=== PATIENT | male | born 1965 | race Caucasian/White ===

== ENCOUNTER 2017-08-22 18:33 | Emergency (ER) | payer OTHER ==
[~2017-08-22] VITALS: Ht 182.9 cm; Wt 57.2 kg
[~2017-08-22 18:33] MED LIST: ASPI-147 PO; ATOR20TA15 PO; [UNRECOGNIZED DRUG - CODE] PO
[2017-08-22 18:36] VITALS: BP 139/80; PULSE 77; RESP 18; TEMP 98; O2SAT 100
[2017-08-22] MEDS ORDERED: SODIUM CHLOR 0.9% 1000 ML INJ 1,000 ML IV ONE (19:15)
[2017-08-22] MEDS ORDERED: CLINDAMYCIN INJ 900 MG in SODIUM CHLORIDE 0.9% INJ 100 ML IV ONE (19:15)
--- NOTE | 2017-08-22 19:36 | PD ---
HPI Chief Complaint: Skin Problem Time Seen by Provider: 19:01 Travel History International Travel<30 days: No Contact w/Intl Traveler<30days: No Traveled to known affect area: No History of Present Illness HPI Patient is a 51 yo male presenting with right foot redness, itching, and white discharge in the folds between his toes. He states that he has had this problem with his foot before in 2009 where he was admitted to the hospital with IV antibiotics. He states his foot looks exactly how it looked last time he was in the hospital. The patient states that his symptoms started yesterday where he noticed the redness and discharge. He states he used a cream that he is unsure of the name, but it did not help. 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 He is unable to recall if he had exposed his feet to murky dirty water. The patient states that he saw a assistant sales center manager recently for an ecthymatous rash on his hands and was diagnosed with eczema. He denies fever , chills, abdominal, diarrhea, n/v, SOB, and chest pain. The patient denies history of diabetes and immunosuppression. PMH: 2 TIAs, eczema, hospitalization in 2009 for lower extremity infection PFSH Past Medical History Hx Anticoagulant Therapy: No Arthritis: No Asthma: No Autoimmune Disease: Yes Blood Disorders: No Anxiety: No Depression: No Heart Rhythm Problems: No Cancer: No Cardiovascular Problems: No High Cholesterol: No Chest Pain: No Congestive Heart Failure: No COPD: No Cerebrovascular Accident: Yes (TIA 09/2015) Diabetes: No Diminished Hearing: No Endocrine: No GERD: No Glaucoma: No Genitourinary: No Headaches: Yes Hepatitis: No Hiatal Hernia: No Hypertension: No Immune Disorder: No Kidney Stones: No Musculoskeletal: No Neurologic: Yes (TIA 2012) Psychiatric: No Reproductive: No Respiratory: No Immunizations Current: Yes Myocardial Infarction: No Renal Failure: No Seizures: No Sickle Cell Disease: No Sleep Apnea: No Thyroid Disease: No Ulcer: No ?: Not Past Surgical History Abdominal Surgery: No AICD: No Cardiac Surgery: No Ear Surgery: No Endocrine Surgery: No Eye Surgery: No Genitourinary Surgery: No Gynecologic Surgery: No Oral Surgery: No Pacemaker: No Thoracic Surgery: No Other Surgery: Yes (skin grafts for broken right leg) Social History Alcohol Use: Yes (OCCASIONALLY) Tobacco Use: Yes (1 PPD) Substance Use: No Allergies-Medications (Allergen,Severity, Reaction): Coded Allergies: Sulfa (Sulfonamide Antibiotics) (Unverified Allergy, Severe, HIVES, ) ciprofloxacin (Unverified Allergy, Severe, HIVES, 08/22/17) penicillin G (Unverified Allergy, Severe, UNKNOWN, 08/22/17) codeine (Unverified Adverse Reaction, Severe, VOMITING, 08/22/17) Reported Meds & Prescriptions Reported Meds & Active Scripts Active Clindamycin (Clindamycin HCl) 150 Mg Cap 450 Mg PO Q8HR 10 Days Review of Systems Except as stated in HPI: all other systems reviewed are Neg General / Constitutional: No: Fever Physical Exam Narrative GENERAL: 51 yo M, WNWD SKIN: Right dorsum of the foot erythematous including all 5 phalanges and extends proximally to the navicular area of the foot. White discharge in the skin folds between the phalanges with odor present. Left foot dorsum has erythematous pattern extending near navicular bone to medial malleolus. HEAD: Atraumatic. Normocephalic. EYES: Pupils equal and round. No scleral icterus. No injection or drainage. ENT: No nasal bleeding or discharge. Mucous membranes pink and moist. NECK: Trachea midline. No JVD. CARDIOVASCULAR: Regular rate and rhythm. RESPIRATORY: No accessory muscle use. Clear to auscultation. Breath sounds equal bilaterally. GASTROINTESTINAL: Abdomen soft, non-tender, nondistended. Hepatic and splenic margins not palpable. MUSCULOSKELETAL: Extremities without clubbing, cyanosis, or edema. No obvious deformities. NEUROLOGICAL: Awake and alert. No obvious cranial nerve deficits. Motor grossly within normal limits. Five out of 5 muscle strength in the arms and legs. Normal speech. PSYCHIATRIC: Appropriate mood and affect; insight and judgment normal. Data Data Last Documented VS Vital Signs Date Time Temp Pulse Resp B/P (MAP) Pulse Ox O2 Delivery O2 Flow Rate FiO2 08/22/17 18:36 98.0 77 18 139/80 (99) 100 Orders Orders Basic Metabolic Panel (Bmp) (08/22/17 19:12) Complete Blood Count With Diff (08/22/17 19:12) Blood Culture (08/22/17 19:12) Wound Culture And Gram Stain (08/22/17 19:12) Iv Access Insert/Monitor (08/22/17 19:12) Clindamycin Inj (Cleocin Inj) (08/22/17 19:15) Foot, Limited (2vws) (08/22/17 ) Sodium Chlor 0.9% 1000 Ml Inj (Ns 1000 M (08/22/17 19:15) Ed Discharge Order (08/22/17 20:37) Labs Laboratory Tests Test 08/22/17 19:25 White Blood Count 4.1 TH/MM3 Red Blood Count 4.15 MIL/MM3 Hemoglobin 12.9 GM/DL Hematocrit 38.8 % Mean Corpuscular Volume 93.5 FL Mean Corpuscular Hemoglobin 31.1 PG Mean Corpuscular Hemoglobin Concent 33.2 % Red Cell Distribution Width 15.2 % Platelet Count 332 TH/MM3 Mean Platelet Volume 7.3 FL Neutrophils (%) (Auto) 56.9 % Lymphocytes (%) (Auto) 28.1 % Monocytes (%) (Auto) 8.5 % Eosinophils (%) (Auto) 5.1 % Basophils (%) (Auto) 1.4 % Neutrophils # (Auto) 2.2 TH/MM3 Lymphocytes # (Auto) 1.2 TH/MM3 Monocytes # (Auto) 0.4 TH/MM3 Eosinophils # (Auto) 0.2 TH/MM3 Basophils # (Auto) 0.1 TH/MM3 CBC Comment DIFF FINAL Differential Comment Blood Urea Nitrogen 4 MG/DL Creatinine 0.62 MG/DL Random Glucose 84 MG/DL Calcium Level 8.3 MG/DL Sodium Level 133 MEQ/L Potassium Level 4.1 MEQ/L Chloride Level 99 MEQ/L Carbon Dioxide Level 27.3 MEQ/L Anion Gap 7 MEQ/L Estimat Glomerular Filtration Rate 137 ML/MIN MDM Medical Decision Making Medical Screen Exam Complete: Yes Emergency Medical Condition: Yes Differential Diagnosis cellulitis, necrotizing fasciitis, abscess Narrative Course CBC & BMP Diagram 08/22/17 19:25 Calcium Level 8.3 L Foot xray: no free air The patient is resting comfortably and feels better, is alert and in no distress. The patients results and examination findings were discussed. The repeat examination is unremarkable and benign. The history, exam, diagnostic testing, and current condition do not suggest any significant pathology to warrant further testing, continued ED treatment, admission, or surgical evaluation at this point. The vital signs have been stable. The patient does not have uncontrollable pain, intractable vomiting, or other significant symptoms. The patient's condition is stable and appropriate for discharge. The patient will pursue further outpatient evaluation with a primary care physician or other designated or consulting physician as indicated in the discharge instructions. The patient expressed understanding and was agreeable with this plan. Diagnosis Primary Impression: Cellulitis Qualified Codes: L03.115 - Cellulitis of right lower limb Referrals: Primary Care Physician 2 days Additional Instructions: You have a choice when it comes to health care, and we are glad that you chose [facility]. Hopefully, we have met your expectations on today's visit. You are welcome to return to [facility] [employer] [facility] at any time, as we are committed to meeting the health care needs of our community. Med/Other Pt SpecificInfo: Prescription(s) given Scripts Clindamycin (Clindamycin) 150 Mg Cap 450 MG PO Q8HR for Infection for 10 Days, CAP 0 Refills Prov: Adis Keita MD 08/22/17 Disposition: 01 DISCHARGE HOME Condition: Stable Adis Keita MD Aug 22, 2017 19:36
[2017-08-22 19:44] LABS: AUTOMATED NEUTROPHIL # 2.2 TH/MM3 (1.8-7.7); BASOPHIL # 0.1 TH/MM3 (0-0.2); BASOPHIL % 1.4 % (0.0-2.0); EOSINOPHIL # 0.2 TH/MM3 (0-0.4); EOSINOPHIL % 5.1 % (0.0-4.0); HEMATOCRIT 38.8 % (39.0-51.0); HEMOGLOBIN 12.9 GM/DL (13.0-17.0); LYMPH % 28.1 % (9.0-44.0); LYMPHOCYTE # 1.2 TH/MM3 (1.0-4.8); MEAN CELL VOLUME 93.5 FL (80.0-100.0); MEAN CORPUSCULAR HEMOGLOBIN 31.1 PG (27.0-34.0); MEAN CORPUSCULAR HGB CONC 33.2 % (32.0-36.0); MEAN PLATELET VOLUME 7.3 FL (7.0-11.0); MONO % 8.5 % (0.0-8.0); MONOCYTE # 0.4 TH/MM3 (0-0.9); NEUT % 56.9 % (16.0-70.0); PLATELET COUNT 332 TH/MM3 (150-450); RED BLOOD COUNT 4.15 MIL/MM3 (4.50-5.90); RED CELL DISTRIBUTION WIDTH 15.2 % (11.6-17.2); WHITE BLOOD COUNT 4.1 TH/MM3 (4.0-11.0)
[2017-08-22 19:53] LABS: BICARBONATE 27.3 MEQ/L (21.0-32.0); CALCIUM 8.3 MG/DL (8.5-10.1)
[2017-08-22 19:57] LABS: CREATININE 0.62 MG/DL (0.60-1.30)
--- NOTE | 2017-08-22 20:32 | RADRPT ---
EXAM DATE/TIME: 08/22/2017 19:21 [facility] COMPARISON: No previous studies available for comparison. INDICATIONS : Possible infection. Redness and swelling. MEDICAL HISTORY : None. SURGICAL HISTORY : None. ENCOUNTER: Initial ACUITY: 4 - 6 days PAIN SCORE: 6/10 LOCATION: Right lateral FINDINGS: Two view examination of the right foot demonstrates soft tissue swelling along the dorsum of the foot . Bony structures are intact. There's no evidence of radiopaque foreign body. CONCLUSION: Soft tissue swelling without evidence of acute fracture or radiopaque foreign body. Gordon Jhaveri MD on August 22, 2017 at 20:30 Board Certified Radiologist. This report was verified electronically.
[2017-08-22] MEDS ORDERED: CLIN1CAP5 PO (20:33)
== END 2017-08-22 20:57 | disposition home or self-care (01) ==
LOC: PHEFT 18:33
DX: L03.115 Cellulitis of right lower limb (principal); B95.61 Methicillin susceptible Staphylococcus aureus infection as the cause of diseases classified elsewhere; B95.4 Other streptococcus as the cause of diseases classified elsewhere; B96.89 Other specified bacterial agents as the cause of diseases classified elsewhere; F17.200 Nicotine dependence, unspecified, uncomplicated; Z86.79 Personal history of other diseases of the circulatory system; Z87.2 Personal history of diseases of the skin and subcutaneous tissue; Z86.2 Personal history of diseases of the blood and blood-forming organs and certain disorders involving the immune mechanism
CPT/HCPCS: 73620; 80048; 85025; 86403; 87040; 87070; 87077; 87186; 96365; 99284; J7030; 87205